=== PATIENT | male | born 1985 | race Caucasian/White ===

== ENCOUNTER 2020-07-20 11:08 | Observation (INO) ==
[2020-07-20 13:04] LABS: Basophils # 0.1 K/mcL (0.0-0.2); Basophils % 0.6 %; Eosinophils # 0.1 K/mcL (0.0-0.6); Eosinophils % 0.9 %; Hematocrit 47.5 % (37.5-50.1); Hemoglobin 14.9 g/dL (12.9-16.9); Immature Granulocytes % 0.3 % (0-4); Lymphocytes # 2.1 K/mcL (0.6-4.6); Mean Corpuscular HGB Conc 31.4 g/dL (31.6-35.5); Mean Corpuscular Hemoglobin 27.1 pg (28.0-33.3); Mean Corpuscular Volume 86.5 fL (83.0-100.0); Mean Platelet Volume 10.2 fL (9.4-12.4); Monocytes # 1.3 K/mcL (0.0-1.3); Monocytes % 12.6 %; Neutrophils # 6.4 K/mcL (1.6-8.9); Platelet Count 248 K/mcL (140-400); Red Blood Count 5.49 M/mcL (4.19-5.50); Segmented Neutrophils % 64.6 %; White Blood Count 9.9 K/mcL (4.3-11.1)
[2020-07-20 13:21] LABS: Bilirubin,Urine Large (Negative); Blood,Urine Negative (Negative); Glucose,Urine (UA) Normal (Normal); Ketones,Urine Trace mg/dL (Negative); Leukocyte Esterase,Urine Negative (Negative); Nitrite,Urine Negative (Negative); Protein,Urine 30 mg/dL (Neg-Trace); Specific Gravity,Urine 1.025 (1.010-1.025); Urobilinogen,Urine Normal (Normal)
[2020-07-20 13:36] LABS: Alanine Aminotransferase 2039 Units/L (7-52); Albumin 3.7 g/dL (3.5-5.7); Albumin/Globulin Ratio 1.5 (1.1-2.2); Alkaline Phosphatase 197 Units/L (34-104); Aspartate Amino Transferase 1371 Units/L (13-39); BUN/Creatinine Ratio 9 (6-26); Bilirubin,Direct 6.3 mg/dL (0.0-0.2); Bilirubin,Indirect 2.3 mg/dL (0.0-1.0); Bilirubin,Total 8.6 mg/dL (0.3-1.0); Blood Urea Nitrogen 8 mg/dL (6-20); Calcium 9.1 mg/dL (8.6-10.3); Carbon Dioxide 29 mEq/L (23-29); Chloride 103 mEq/L (98-107); Globulin 2.4 g/dL (2.4-3.5); Glucose 77 mg/dL (70-105); Lipase 20 Units/L (11-82); Osmolality,Calculated 281 (280-300); Potassium 3.9 mEq/L (3.5-5.1); Sodium 137 mEq/L (136-145); Total Protein 6.1 g/dL (6.4-8.9); eGFR For African Americans > 60 (> 60); eGFR For Non-African Americans > 60 (> 60)
[2020-07-20 13:46] LABS: Clarity,Urine Turbid (Clear); Color,Urine Light-Orange (Yellow)
[2020-07-20 14:11] LABS: Bacteria,Urine Few per hpf (None-Few); Mucus,Urine Few per lpf (None-Few); WBC,Urine 0-3 per hpf (0-3)
[2020-07-20 15:46] LABS: INR 1.2; Prothrombin Time 13.8 Seconds (9.4-12.1)
[2020-07-20] MEDS ORDERED: Ondansetron ODT 4 MG TAB.RAPDIS SL PRN (17:07)
[2020-07-20] MEDS ORDERED: *HR* OxyCODONE Immed Rel 5 MG TABLET PO PRN (17:10)
[2020-07-20] MEDS ORDERED: Ringers Solution, Lactated 1,000 ML IVC ONE (17:10)
[2020-07-20 17:25] LABS: Acetaminophen < 10 mcg/mL (10-20)
[2020-07-20] MEDS: Ringers Solution, Lactated 3,000 ML IVC ONE ×2 (18:30→22:41)
[2020-07-20] MEDS: Nicotine 21 MG PATCH.TD24 TD SCH (18:31)
[2020-07-20] MEDS: *HR* OxyCODONE Immed Rel 5 MG TABLET PO PRN ×2 (18:31→22:41)
[2020-07-20 18:32] LABS: Ethanol < 10 mg/dL (Less than 10)
[2020-07-20] MEDS ORDERED: Ringers Solution, Lactated 1,000 ML ONE (22:40)
[2020-07-21 01:37] LABS: Hematocrit 44.3 % (37.5-50.1); Hemoglobin 14.5 g/dL (12.9-16.9); Mean Corpuscular HGB Conc 32.7 g/dL (31.6-35.5); Mean Corpuscular Hemoglobin 28.4 pg (28.0-33.3); Mean Corpuscular Volume 86.7 fL (83.0-100.0); Mean Platelet Volume 10.6 fL (9.4-12.4); Platelet Count 237 K/mcL (140-400); Red Blood Count 5.11 M/mcL (4.19-5.50); White Blood Count 9.7 K/mcL (4.3-11.1)
[2020-07-21 01:38] LABS: INR 1.2
[2020-07-21 02:11] LABS: Alanine Aminotransferase 1743 Units/L (7-52); Albumin 3.3 g/dL (3.5-5.7); Albumin/Globulin Ratio 1.4 (1.1-2.2); Alkaline Phosphatase 161 Units/L (34-104); Aspartate Amino Transferase 1137 Units/L (13-39); BUN/Creatinine Ratio 15 (6-26); Bilirubin,Total 8.1 mg/dL (0.3-1.0); Blood Urea Nitrogen 13 mg/dL (6-20); Calcium 8.7 mg/dL (8.6-10.3); Carbon Dioxide 26 mEq/L (23-29); Chloride 106 mEq/L (98-107); Globulin 2.3 g/dL (2.4-3.5); Glucose 110 mg/dL (70-105); Osmolality,Calculated 285 (280-300); Sodium 137 mEq/L (136-145); Total Protein 5.6 g/dL (6.4-8.9); eGFR For African Americans > 60 (> 60); eGFR For Non-African Americans > 60 (> 60)
[2020-07-21] MEDS ORDERED: Ringers Solution, Lactated 1,000 ML ONE ×2 (03:21→13:35)
[2020-07-21] MEDS: *HR* Enoxaparin 40 MG/0.4 ML SYRINGE SQ SCH (05:27)
[2020-07-21 06:55] LABS: Hepatitis C Virus Antibody Nonreactive (Nonreactive)
[2020-07-21 06:58] LABS: Hepatitis A Antibody IgM Nonreactive (Nonreactive)
[2020-07-21 06:59] LABS: Hepatitis B Core IgM Reactive (Nonreactive)
[2020-07-21] MEDS: Nicotine 21 MG PATCH.TD24 TD SCH (07:28)
[2020-07-21] MEDS: *HR* OxyCODONE Immed Rel 5 MG TABLET PO PRN ×2 (07:28→14:09)
[2020-07-21 08:12] LABS: Hepatitis B Surface Antigen Reactive (Nonreactive)
[2020-07-21 09:54] LABS: Amphetamine Screen,Urine Positive ng/mL (Cutoff=1000); Barbiturate Screen,Urine Negative ng/mL (Cutoff=200); Benzodiazepines Screen,Urine Negative ng/mL (Cutoff=200); Cannabinoid Screen,Urine Negative ng/mL (Cutoff = 50); Cocaine Screen,Urine Negative ng/mL (Cutoff= 300); Opiate Screen,Urine Negative ng/mL (Cutoff=300); Phencyclidine Screen,Urine Negative ng/mL (Cutoff=25)
[2020-07-21 09:56] LABS: Hepatitis B Surface Antibody 5.42 mIU/mL
[2020-07-21 11:14] LABS: Hepatitis B Surface Antigen Reactive (Nonreactive)
[2020-07-21] MEDS ORDERED: Ringers Solution, Lactated 500 ML IVC SCH (12:30)
[2020-07-21] MEDS: Ringers Solution, Lactated 1,000 ML IVC SCH ×3 (14:04→22:26)
[2020-07-22] MEDS: Ringers Solution, Lactated 1,000 ML IVC SCH ×6 (02:07→23:33)
[2020-07-22 03:09] LABS: Alanine Aminotransferase > 5000 Units/L (7-52); Albumin 3.1 g/dL (3.5-5.7); Albumin/Globulin Ratio 1.6 (1.1-2.2); Alkaline Phosphatase 164 Units/L (34-104); Aspartate Amino Transferase > 3000 Units/L (13-39); Bilirubin,Direct 5.8 mg/dL (0.0-0.2); Bilirubin,Indirect 2.6 mg/dL (0.0-1.0); Bilirubin,Total 8.4 mg/dL (0.3-1.0); Total Protein 5.1 g/dL (6.4-8.9)
[2020-07-22] MEDS: *HR* Enoxaparin 40 MG/0.4 ML SYRINGE SQ SCH (05:02)
[2020-07-22] MEDS: *HR* OxyCODONE Immed Rel 5 MG TABLET PO PRN ×3 (05:05→19:29)
[2020-07-22 06:46] LABS: INR 1.4; Prothrombin Time 16.2 Seconds (9.4-12.1)
[2020-07-22] MEDS: Nicotine 21 MG PATCH.TD24 TD SCH (07:59)
[2020-07-22] MEDS: Tenofovir Disoproxil Fumarate 300 MG TABLET PO SCH (15:56)
[2020-07-22 16:10] LABS: Hepatitis Be Antibody NEGATIVE (Negative)
[2020-07-22 17:48] LABS: HBV Quant Log by PCR 4.31 log IU/mL
[2020-07-22] MEDS ORDERED: hydrOXYzine pamoate 25 MG CAPSULE PO PRN (20:25)
[2020-07-23] MEDS: Ringers Solution, Lactated 1,000 ML IVC SCH ×6 (03:42→21:36)
[2020-07-23] MEDS: *HR* OxyCODONE Immed Rel 5 MG TABLET PO PRN ×3 (04:28→21:36)
[2020-07-23] MEDS: *HR* Enoxaparin 40 MG/0.4 ML SYRINGE SQ SCH (05:46)
[2020-07-23] MEDS: Tenofovir Disoproxil Fumarate 300 MG TABLET PO SCH (07:48)
[2020-07-23] MEDS: Nicotine 21 MG PATCH.TD24 TD SCH (07:48)
[2020-07-23 08:06] LABS: INR 1.3; Prothrombin Time 14.4 Seconds (9.4-12.1)
[2020-07-23 10:10] LABS: HBV Quant Interpretation DETECTED (Not Detected); Hepatitis B Core Ab Total POSITIVE (Negative)
[2020-07-23 10:13] LABS: Hepatitis Be Antigen POSITIVE (Negative)
[2020-07-23 11:02] LABS: Alanine Aminotransferase 2386 Units/L (7-52); Albumin 3.2 g/dL (3.5-5.7); Albumin/Globulin Ratio 1.5 (1.1-2.2); Alkaline Phosphatase 167 Units/L (34-104); Aspartate Amino Transferase 2284 Units/L (13-39); BUN/Creatinine Ratio 10 (6-26); Blood Urea Nitrogen 8 mg/dL (6-20); Calcium 8.6 mg/dL (8.6-10.3); Carbon Dioxide 28 mEq/L (23-29); Chloride 102 mEq/L (98-107); Globulin 2.1 g/dL (2.4-3.5); Glucose 78 mg/dL (70-105); Osmolality,Calculated 279 (280-300); Sodium 136 mEq/L (136-145); Total Protein 5.3 g/dL (6.4-8.9); eGFR For African Americans > 60 (> 60); eGFR For Non-African Americans > 60 (> 60)
[2020-07-23 20:57] LABS: HCV Quant Log 7.43 log IU/mL
[2020-07-24] MEDS: Ringers Solution, Lactated 1,000 ML IVC SCH ×4 (01:54→14:57)
[2020-07-24] MEDS: *HR* OxyCODONE Immed Rel 5 MG TABLET PO PRN ×2 (05:06→10:04)
[2020-07-24] MEDS: *HR* Enoxaparin 40 MG/0.4 ML SYRINGE SQ SCH (06:08)
[2020-07-24 06:14] LABS: INR 1.3; Prothrombin Time 14.8 Seconds (9.4-12.1)
[2020-07-24 07:13] LABS: Albumin 3.3 g/dL (3.5-5.7); Albumin/Globulin Ratio 1.5 (1.1-2.2); Bilirubin,Direct 7.5 mg/dL (0.0-0.2); Bilirubin,Indirect 3.4 mg/dL (0.0-1.0); Bilirubin,Total 10.9 mg/dL (0.3-1.0); Globulin 2.2 g/dL (2.4-3.5); Total Protein 5.5 g/dL (6.4-8.9)
[2020-07-24] MEDS: Tenofovir Disoproxil Fumarate 300 MG TABLET PO SCH (10:04)
[2020-07-24] MEDS: Nicotine 21 MG PATCH.TD24 TD SCH (10:08)
[2020-07-24 10:43] LABS: HCV Quant Interpretation DETECTED (Not Detected)
[2020-07-24 11:00] VITALS: BP 144/81
== END 2020-07-24 14:53 | disposition home or self-care (01) ==
LOC: EMEROOARM 11:08 → 3BNU 11:08
PROVIDERS: ADMIT Family Medicine; ATTEND Family Medicine